=== PATIENT | female | born 1995 | race American Indian/Alaskan Native ===

== ENCOUNTER 2017-01-05 15:37 | Emergency (ER) | payer SELFPAY ==
[2017-01-05] MEDS ORDERED: BICILLIN L-A IM ONE (17:13)
--- NOTE | 2017-01-05 17:18 | Emergency Department Report ---
ED ENT HPI - General Chief complaint: Dental/Oral Stated complaint: TOOTHACHE Time Seen by Provider: 01/05/17 17:03 Source: patient, family Mode of arrival: Ambulatory Limitations: No Limitations - History of Present Illness MD complaint: tooth pain -: Sudden Severity: mild Quality: crushing Consistency: constant Improves with: none Context- Dental: history of dental caries Associated Symptoms: toothache. denies: fever, cough, gum swelling, pain with swallowing, sore throat, tinnitus, hearing loss, discharge from ear, rhinorrhea - Related Data Previous Rx's Medication Instructions Recorded Last Taken Type Amoxicillin [Trimox CAP] 500 mg PO BID #20 capsule 01/05/17 Unknown Rx Naproxen Sodium [Aleve TAB] 220 mg PO Q8H PRN #12 tablet 01/05/17 Unknown Rx Allergies Allergy/AdvReac Type Severity Reaction Status Date / Time No Known Allergies Allergy Unverified 01/05/17 15:46 ED Dental HPI - General Chief complaint: Dental/Oral Stated complaint: TOOTHACHE Time Seen by Provider: 01/05/17 17:03 Source: patient Mode of arrival: Ambulatory Limitations: No Limitations - History of Present Illness MD complaint: tooth pain -: days(s) Severity: moderate Quality: aching Consistency: constant - Related Data Previous Rx's Medication Instructions Recorded Last Taken Type Amoxicillin [Trimox CAP] 500 mg PO BID #20 capsule 01/05/17 Unknown Rx Naproxen Sodium [Aleve TAB] 220 mg PO Q8H PRN #12 tablet 01/05/17 Unknown Rx Allergies Allergy/AdvReac Type Severity Reaction Status Date / Time No Known Allergies Allergy Unverified 01/05/17 15:46 ED Review of Systems ROS: Stated complaint: TOOTHACHE Other details as noted in HPI Comment: All other systems reviewed and negative Constitutional: no symptoms reported, see HPI. denies: chills Eyes: as per HPI. denies: eye pain ENT: as per HPI, dental pain. denies: ear pain, throat pain Respiratory: no symptoms reported, see HPI. denies: cough, orthopnea Cardiovascular: as per HPI. denies: chest pain, palpitations, dyspnea on exertion Endocrine: no symptoms reported, see HPI. denies: excessive sweating, flushing , intolerance to cold Gastrointestinal: as per HPI. denies: abdominal pain Genitourinary: as per HPI Musculoskeletal: as per HPI Skin: as per HPI Neurological: as per HPI Psychiatric: as per HPI Hematological/Lymphatic: as per HPI ED Past Medical Hx - Past Medical History Previous Medical History?: No - Surgical History Past Surgical History?: No - Social History Smoking Status: Current Every Day Smoker Substance Use Type: None - Medications Home Medications: Home Medications Medication Instructions Recorded Confirmed Last Taken Type Amoxicillin [Trimox CAP] 500 mg PO BID #20 capsule 01/05/17 Unknown Rx Naproxen Sodium [Aleve TAB] 220 mg PO Q8H PRN #12 tablet 01/05/17 Unknown Rx ED Physical Exam - General Limitations: No Limitations General appearance: alert - Head Head exam: Present: atraumatic - Eye Eye exam: Present: normal appearance Pupils: Present: normal accommodation - ENT ENT exam: Present: normal exam, mucous membranes moist - Expanded ENT Exam Expanded Teeth exam: Present: dental caries (left rear), gingival enlargement 1 - Other (caries) Throat exam: Positive: normal inspection. Negative: tonsillar erythema, tonsillomegaly, tonsillar exudate, R peritonsillar mass, L peritonsillar mass, other (no ludwigs or abscess) - Neck Neck exam: Present: normal inspection. Absent: tenderness, meningismus - Respiratory Respiratory exam: Present: normal lung sounds bilaterally - Cardiovascular Cardiovascular Exam: Present: regular rate - GI/Abdominal GI/Abdominal exam: Present: soft - Neurological Exam Neurological exam: Present: alert, oriented X3 - Psychiatric Psychiatric exam: Present: normal affect - Skin Skin exam: Present: warm, dry, intact ED Course Vital Signs 01/05/17 15:46 Temperature 98.8 F Pulse Rate 60 Respiratory 18 Rate Blood Pressure 127/89 O2 Sat by Pulse 100 Oximetry ED Medical Decision Making - Medical Decision Making vss nad taking po dental caries Critical care attestation.: If time is entered above; I have spent that time in minutes in the direct care of this critically ill patient, excluding procedure time. ED Disposition Clinical Impression: Dental caries Disposition: DC- TO HOME OR SELFCARE Is pt being admited?: No Does the pt Need Aspirin: No Condition: Stable Instructions: Dental Caries (ED) Additional Instructions: good oral care med as ordered follow up dentist krish Referrals: PRIMARY CARE, [Primary Care Provider] - 3-5 Days [facility] [Outside] - 3-5 Days [facility]Outside[facility] - 3-5 Days [facility] [Outside] - 3-5 Days Time of Disposition: 17:16
[2017-01-05] MEDS ORDERED: MOTRIN ONE (17:35)
[2017-01-05] MEDS ORDERED: MOTRIN PO ONE (17:36)
[2017-01-05] MEDS ORDERED: NAPROSYN PO ONE (18:00)
[2017-01-05 18:05] VITALS: BP 122/87
== END 2017-01-05 18:06 | disposition home or self-care (01) ==
LOC: ED 15:37
DX: K02.9 Dental caries, unspecified (principal); F17.200 Nicotine dependence, unspecified, uncomplicated
CPT/HCPCS: 96372; 99282; J0561